=== PATIENT | male | born 1940 | race Caucasian/White ===

== ENCOUNTER 2017-01-05 14:00 | Inpatient (IN) | payer MEDICARE, BC ==
--- NOTE | ~2017-01-05 | EKG ---
PATIENT: KARISHMA DENNIS UNIT #: [id number] Ventricular Rate: 73 BPM Atrial Rate: 73 BPM P-R Interval: 192 ms QRS Duration: 94 ms Q-T Interval: 456 ms QTC Calculation(Bezet): 502 ms P Witten: 31 degrees Calculated R Witten: -11 degrees Calculated T Witten: 160 degrees Diagnosis Line: Sinus rhythm with occasional Premature ventricular Diagnosis Line: complexes and Premature atrial complexes Diagnosis Line: T wave abnormality, consider lateral ischemia Diagnosis Line: Prolonged QT Diagnosis Line: Abnormal ECG Diagnosis Line: When compared with ECG of 05-JAN-2017 16:57, Diagnosis Line: Premature atrial complexes are now Present Diagnosis Line: T wave inversion more evident in Anterior leads Diagnosis Line: Confirmed by ERIK STEVEN MD ([id number]) on Diagnosis Line: 01/07/2017 6:41:19 AM INTERPRETING : JOHN
--- NOTE | ~2017-01-05 | DS ---
Unit #: [id number] #: [id number] Patient: KARISHMA DENNIS [id number] [address] [address] [id number] I MR#: [id number] NAME: KARISHMA DENNIS SR ROOM: 314 Age: 76 Sex: M Admission Date: 01/05/2017 : 1940 Discharge Date: 01/11/2017 Attending Physician: Terence Colon M.D. Primary Care Physician: Terence Colon M.D. DISCHARGE SUMMARY DISCHARGE DIAGNOSES 1. Acute systolic congestive heart failure. 2. Ischemic cardiomyopathy. 3. Coronary artery disease status past left cardiac catheterization on 01/09/2017 which revealed left main 50 to 70% in ostium best seen in [place] cranial. 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 Diagonal branch small in caliber and diffusely diseased. Secondary diagonal branch small in caliber but normal. Left circumflex 85% involving the origin of the first obtuse marginal branch. Second marginal branch normal. First marginal branch 95% stenosis in its proximal third with the distal vessel normal and bypassable. Proximal half of the right coronary artery normal. Distal to the acute right ventricular branch 70 to 75%. Posterior descending artery normal. No left ventriculogram due to renal insufficiency. End-diastolic pressure (1) mm. Maximal medical therapy due to current renal insufficiency. Consider staged angioplasty versus coronary artery bypass grafting. 4. A 2-D echocardiogram, 01/06/17, revealed a left ventricular ejection fraction of 20 to 25%. Severe global hypokinesis of the left ventricle. Left atrium moderately dilated. Moderately enlarged right atrium. Moderately dilated right ventricle. Right ventricular systolic 60 mmHg consistent with severe pulmonary hypertension. Moderate mitral annular calcification. Moderate severe mitral regurgitation. Moderate tricuspid regurgitation. Mild pulmonic regurgitation. No pericardial effusion. No evidence of pleural fluid. 5. Paroxysmal atrial fibrillation, now in sinus rhythm. 6. Chronic anticoagulation with Coumadin. 7. Frequent PVCs. 8. Accelerated idioventricular rhythm, resolved, chronic kidney disease with current creatinine 1.9. 9. Hypertension. 10. Hyperlipidemia. 11. Diabetes mellitus type 2. 12. History of non-Hodgkin's lymphoma followed by Dr. Euceda. 13. History of prostate cancer status post external beam radiation. 14. Obesity. 15. Chronic lymphedema. 16. Reformed tobacco abuse. DISCHARGE MEDICATIONS 1. Flomax 0.4 mg p.o. every evening. 2. Amiodarone 200 mg p.o. daily. 3. Coumadin 5 mg p.o. daily. Unit #: [id number] #: [id number] Patient: KARISHMA DENNIS 4. Gabapentin 300 mg p.o. b.i.d. 5. Imodium 2 mg p.o. p.r.n. for diarrhea. 6. Metoprolol tartrate 50 mg p.o. b.i.d. 7. Furosemide 40 mg p.o. b.i.d. 8. Hydralazine 25 mg p.o. b.i.d. 9. Lantus 64 units subcu daily. 10. Allopurinol 300 mg p.o. every evening. 11. Excedrin tension one tablet p.o. q.8 p.r.n. for headache. 12. Oxycodone 5 mg p.o. b.i.d. p.r.n. for pain. 13. Tramadol 50 mg p.o. b.i.d. 14. Protonix 40 mg p.o. every evening. 15. Isosorbide dinitrate 10 mg p.o. b.i.d. 16. Nitroglycerin 0.4 mg sublingual every five minutes x3 p.r.n. chest pain. 17. Vitamin D3 2,000 units p.o. daily. 18. Lipitor 40 mg p.o. q.h.s. 19. Plavix 75 mg p.o. daily. HOSPITAL COURSE This is a 76-year-old white male with a past medical history of hypertension, hyperlipidemia, diabetes, non-Hodgkin's lymphoma and prostate cancer. The patient presented to the hospital with complaints of worsening lower extremity edema and shortness of breath. He also had some substernal chest tightness. He was directly admitted from Dr. Acharya's office. His pulse ox was checked and his O2 sat was 87% on room air. Oxygen was applied at two liters per nasal cannula. EKG revealed sinus rhythm PVCs. Telemetry revealed some bigeminy and a triplet. Cardiology was consulted for shortness of breath and chest pain. The patient was diagnosed with acute pulmonary edema secondary to concern for hypertensive heart disease and possible underlying ischemic disease. Serial cardiac enzymes were trended and he ruled out for a myocardial infarction. He was started on IV diuretics, low-sodium diet, strict intake and output and fluid restriction. He was placed on nitrates as well as a bet briseida. Therapeutic Lovenox was started due to chest pain. The patient reportedly had an abnormal stress test in the past with abnormal stress test documented and evidence of heart failure and chest pain. The patient was recommended to undergo a cardiac catheterization. Dr. Angeles with Nephrology was consulted due to renal insufficiency. The patient has documented stage 3 chronic kidney disease likely due from longstanding diabetes and protein in the urine. Initially, he was unable to lay flat for cardiac catheterization. So, his medications were adjusted and he was diuresed. He was taken for cardiac catheterization on 01/09/2017. He was found to have severe three vessel disease. Please see details above. He was recommended for recommended for staged angioplasty versus coronary artery bypass grafting. However, due to his renal insufficiency, he was tried first on maximal medical therapy with escalating doses of beta blockers to control arrhythmias and to help prevent left ventricular remodeling. Diuretics were given for volume overload. Postprocedure, he had some accelerated idioventricular rhythm as well as frequent PVCs. He was started on oral amiodarone. His rhythm has improved but he still has some PVCs. There are no complaints of chest pain. His shortness of breath has resolved. There is some mild lower extremity edema that continues but overall volume status is stable. He will be discharged home. A LifeVest will be ordered. CHF education has been provided regarding a low salt diet and fluid restriction. The patient has been encouraged to call or come in to be seen for worsening Unit #: [id number] #: [id number] Patient: KARISHMA DENNIS YANELI YU shortness of breath, lower extremity edema, or weight gain over three pounds. Post cath instructions have been provided. Calf site is soft without hematoma. He will be discharged home on dual antiplatelet therapy, high dose statin and nitrate and beta briseida. Oral Lasix and hydralazine have also been prescribed. No ARSEN inhibitor or ARB has been ordered due to elevated creatinine. The patient has been instructed to follow up with Nephrology in three to four weeks and then with Dr. Colon. If chest pain and shortness of breath recurs before appointments, he has been instructed to proceed to the emergency department. DIAGNOSTIC STUDIES LABORATORY: WBC count 5.5, hemoglobin 12.5, hematocrit 39.9, platelets 143. Sodium 140, potassium 4.4, chloride 102, CO2 31, BUN 46, creatinine 1.9, glucose 94, AST 23, ALT 24, alkaline phosphatase 98. Troponin 0.05 and 0.05. BNP 864. Total cholesterol 120, triglycerides 75, LDL 82, HDL 23. TSH 1.14. INR 1.4. D-dimer 453. IMAGING: Chest x-ray reveals decreased bilateral interstitial opacities and pulmonary vascular prominence, 01/08/2017. CARDIOVASCULAR: EKG reveals sinus rhythm with occasional PVC and PAC. T-wave abnormality in the lateral leads. PHYSICAL EXAMINATION GENERAL APPEARANCE: This is a 76-year-old white male in no acute distress. VITAL SIGNS: Temperature 97.9. Pulse 58. Blood pressure 102/68. SKIN: Warm and dry. NECK: Supple. No jugular venous distention. No hepatojugular reflux. Normal carotid upstrokes. No carotid bruits auscultated. HEART: S1, S2. Regular rate and rhythm. No rubs or gallops. LUNGS: Bilateral breath sounds have good air entry throughout all lung babin. Respirations even and unlabored. No rales, rhonchi or wheezes. ABDOMEN: Soft, nontender, nondistended. Positive bowel sounds auscultated x4 quadrants. No ascites. EXTREMITIES: Bilateral extremities have 1+ pitting edema. DP and PT pulses 2+. Capillary refill less than two seconds. DISCHARGE INSTRUCTIONS 1. The patient will be discharged home today. 2. Follow up with the primary care provider in one to two weeks. 3. Follow up with Dr. Lyles in three to four weeks. 4. Follow up with Dr. Colon on 02/28/2017 at 2:30 p.m. 5. CHF education. 6. Post cath instructions. 7. Home diet: Healthy Heart/2 g sodium/no concentrated sweets. 1800 mL daily fluid restriction. 8. LifeVest ordered and to be delivered at home. 9. No ARSEN or ARB prescribed secondary to elevated creatinine. 10. Consider staged angioplasty versus coronary artery bypass grafting as an outpatient. Dictated by... Paula Chester APRN for Semaj Ricardo TD: 01/16/2017 10:27 Unit #: [id number] #: [id number] Patient: KARISHMA DENNIS JOB #: [id number] DISCHARGE SUMMARY Page 1 of 1 X X DISCHARGE SUMMARY
--- NOTE | ~2017-01-05 | EKG ---
PATIENT: KARISHMA DENNIS UNIT #: [id number] Ventricular Rate: 95 BPM Atrial Rate: 95 BPM P-R Interval: 166 ms QRS Duration: 96 ms Q-T Interval: 386 ms QTC Calculation(Bezet): 485 ms P Bryan: 68 degrees Calculated R Bryan: 26 degrees Calculated T Bryan: 121 degrees Diagnosis Line: Sinus rhythm with frequent Premature ventricular Diagnosis Line: complexes in a pattern of bigeminy Diagnosis Line: ST and T wave abnormality, consider lateral ischemia Diagnosis Line: Prolonged QT Diagnosis Line: Abnormal ECG Diagnosis Line: When compared with ECG of 29-APR-2016 00:12, Diagnosis Line: T wave inversion now evident in Lateral leads Diagnosis Line: Confirmed by ERIK STEVEN MD ([id number]) on Diagnosis Line: 01/05/2017 9:40:42 PM INTERPRETING MD: JOHN
--- NOTE | ~2017-01-05 | CR63 ---
[facility] A Service of [facility] & [facility] RADIOLOGY TEXT RESULTS PATIENT: KARISHMA DENNIS LOCATION: [facility] 314- : 40 UNIT #: [id number] AGE: [address]: Terence Colon MD SEX: M ORDER DR: [id number] [facility] [address] [facility] [place], [place] [address] [id number] I MR#: [id number] Acc #: [id number] NAME: KARISHMA DENNIS : 1940 SEX: M STUDY DATE/TIME: 01/08/2017 11:04 UNIT: [address] ROOM: [facility] STUDY DESCRIPTION: CR Chest 2 View Attending Physician: Terence Colon M.D. Ordering Physician: Damaso Angeles Jr., M.D. Primary Care Physician: Terence Colon M.D. MEDICAL IMAGING REPORT This report is preliminary unless electronic signature is present EXAM PA and lateral chest INDICATIONS Followup congestive heart failure. Fluid buildup in the lungs for 2 weeks. Pre heart cath chest x-ray. COMPARISON 01/05/2017 FINDINGS Improved appearance of the chest with decreased bilateral interstitial opacities and decreased pulmonary vascular prominence. Trace pleural fluid bilaterally. No new infiltrates. Heart size stable. IMPRESSION Decreased bilateral interstitial opacities and pulmonary vascular prominence. Dictated by... Edward Loyd M.D. THIS IS AN ELECTRONICALLY VERIFIED REPORT Edward Loyd M.D. at 01/09/2017 4:34 PM Doris TD: 01/08/2017 13:30 JOB #: [id number] MEDICAL IMAGING REPORT Page 1 of 1 COPY
--- NOTE | ~2017-01-05 | CO ---
Unit #: [id number] #: [id number] Patient: KARISHMA DENNIS SR [id number] [address] [address] [id number] I MR#: [id number] NAME: KARISHMA DENNIS SR ROOM: [facility] Age: 76 Sex: M Admission Date: 01/05/2017 : 1940 Attending Physician: Jareth Acharya M.D. Primary Care Physician: Terence Colon M.D. Consultation Date: 01/05/2017 CONSULTATION REPORT REASON FOR CONSULTATION Diabetic management. HISTORY OF PRESENT ILLNESS This 76-year-old male is admitted to [facility] with shortness of air. The patient complains of shortness of air, which started around 3-4 days ago and was worse with exertion. The patient also states that he was not able to lie flat and was getting short of breath. He is also complaining of associated leg swelling. On questioning the patient also complained of episode of chest pain, which he describes as chest tightness and was worse with ambulation. Currently the patient denies any chest pain. The patient was seen by cardiology who has requested us to see the patient in consultation. The rest of the review of systems is negative. PAST MEDICAL HISTORY 1. The patient states that he has insulin-dependent diabetes mellitus for around 30 years with peripheral neuropathy and retinopathy, which required laser surgery. 2. History of low-grade follicular non-Hodgkin lymphoma, which he states is in remission. 3. Gout. 4. Hypertension. 5. Hyperlipidemia. 6. Prostate cancer status post radiation. 7. Environmental allergies. 8. Chronic lymphedema. 9. Chronic kidney disease. PAST SURGICAL HISTORY 1. Laparoscopic repair of incarcerated hernia, lyses of adhesions. 2. 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 3. Carpal tunnel syndrome. 4. Back surgery. 5. Tonsillectomy and adenoidectomy. 6. Pilonidal cyst excision. ALLERGIES There are no known drug allergies. HOME MEDICATIONS 1. Excedrin. 2. Diltiazem 180 mg p.o. q.h.s. 3. Roxicodone 5 mg b.i.d. p.r.n. 4. Lasix 40 mg p.o. daily. Unit #: [id number] #: [id number] Patient: KARISHMA DENNIS SR 5. Lantus 64 units subcu daily. 6. Coumadin 5 mg daily. 7. Vitamin D3 - 2,000 units daily. 8. Imodium as needed. 9. Kristalose. 10. Flomax 0.4 mg p.o. q.h.s. 11. Gabapentin 300 mg b.i.d. 12. Allopurinol 300 mg every evening. 13. Tramadol 50 mg daily. 14. Protonix 40 mg every evening. SOCIAL HISTORY The patient lives alone. He denies smoking or drinking. FAMILY HISTORY Positive for coronary artery disease. PHYSICAL EXAMINATION GENERAL: The patient is lying comfortably in bed, not in any obvious distress. VITAL SIGNS: Vital signs reveal a temperature of 98.3, pulse 72 per minute, respiratory rate 18 per minute, blood pressure 102/71. HEENT: Examination revealed no conjunctival congestion. Sclera is nonicteric. NECK: Neck is supple. Trachea is central. RESPIRATORY: Examination revealed decreased breath sounds bilaterally. There are no wheezes or crackles. HEART: Regular rate and rhythm. S1, S2. ABDOMEN: Abdomen is soft, nontender. Bowel sounds are present in all 4 quadrants. EXTREMITIES: Extremities reveal no pedal edema, cyanosis. SKIN: Warm and dry. DIAGNOSTIC STUDIES LABS ON ADMISSION: The patient's creatinine is 1.7, sodium 141, potassium 3.4. AST and ALT are within normal limits. The patient's hemoglobin A1C in April 2016 was 7.5. The patient's INR is 3.4. WBC is 5.8, hemoglobin 12.4, platelet count 161. ASSESSMENT AND PLAN 1. Insulin-dependent diabetes mellitus. The patient is on (1) Lantus. Will continue Lantus and have insulin sliding scale low dose. 2. Chest pain. The patient will have a cardiac cath next week. 3. CHF. As per cardiology. 4. History of gout. The patient's Allopurinol is on hold now. 5. BPH. The patient is on Flomax. 6. Chronic kidney disease. The patient's creatinine seems at baseline. Thank you for the consultation. We will follow the patient with you. Dictated by... Semaj Humphreys TD: 01/06/2017 11:52 Unit #: [id number] #: [id number] Patient: SONNYKARISHMA GROVES JOB #: [id number] CONSULTATION REPORT Page 1 of 1 X Debbie Tapia MD CONSULTATION REPORT
--- NOTE | ~2017-01-05 | CO ---
Unit #: [id number] #: [id number] Patient: KARISHMA PISANO [id number] [address] [address] [id number] MR#: [id number] NAME: KARISHMA PISANO SR ROOM: [facility] Age: 76 Sex: M Admission Date: 01/05/2017 : 1940 Attending Physician: Terence Colon M.D. Primary Care Physician: Terence Colon M.D. Consultation Date: 01/07/2017 CONSULTATION REPORT REASON FOR CONSULTATION Chronic kidney disease. HISTORY OF PRESENT ILLNESS Mr. Pisano is a very pleasant 76-year-old male with a longstanding history of hypertension, who was admitted for shortness of breath and orthopnea from his primary care physician's office. The patient was found to be in congestive heart failure and has been getting IV and now p.o. Lasix. His echo showed an ejection fraction of just 20% with severe mitral regurgitation and severe pulmonary hypertension. They are wanting to do a heart catheterization on Monday prompting our consultation. The patient states that his breathing is a little better, but he still would not be able to lie flat for heart catheterization. He denies the use of any NSAIDs at home. He has no history of kidney stones. No urinary complaints. He is having some issues with swelling in his legs still. He does have a history of both lymphoma and prostate cancer, both of which he tells me are doing well according to his cancer doctors. PAST MEDICAL HISTORY Significant for chronic kidney disease, stage 3; hypertension; diabetes for 30 years; hyperlipidemia; chronic back pain; history of lymphoma; history of prostate cancer, treated with radiation; history of paroxysmal atrial fibrillation; former smoker; pulmonary hypertension. PAST SURGICAL HISTORY Carpal tunnel surgery, back surgery, pilonidal cyst, hernia repair, and some finger orthopedic surgery. CURRENT MEDICATIONS As follows. He is getting Lasix 40 mg b.i.d., Flomax 0.4 mg a day, gabapentin 300 mg b.i.d., Tramadol 50 mg b.i.d., Protonix 40 mg a day, vitamin D daily, nitroglycerin ointment topical, metoprolol 25 mg b.i.d., sliding scale insulin, Lantus insulin 50 units daily and p.r.n. ALLERGIES He has no known drug allergies. FAMILY HISTORY Denies any family history of kidney disease or dialysis. There is a family history of coronary artery disease as well as brain aneurysm in his father. SOCIAL HISTORY The patient is a former smoker. He says he never inhaled. 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 He has some supportive family with him in his room today. REVIEW OF SYSTEMS A complete 12-point review of systems was completed with the above findings. In addition, he has not had any headaches or dizziness. No nosebleed, sore throat, or earache. He was having some mild chest pain, which has cleared. No hemoptysis. No nausea, vomiting, or diarrhea. No bright red blood per rectum or melena. No dysuria. No hematuria. No rashes. No pruritus. No flank pain. No fevers, no chills, or night sweats. No hot flashes. No intolerance to heat or cold. No bleeding issues. He is unaware of any significant weight changes. Denies depression or anxiety. Unless otherwise indicated, the review of systems was negative. PHYSICAL EXAMINATION VITAL SIGNS: The patient is afebrile. Pulse 72, respiratory rate 18, and blood pressure 100/68. I's and O's are positive by 689 mL. GENERAL: This is a pleasant male sitting up in a chair, comfortable, and in no acute distress. HEENT: Head is atraumatic and normocephalic. Eyes show pink conjunctivae with no scleral icterus. No nasal drainage or nosebleed. Oropharynx is moist with no thrush. NECK: Shows no rigidity. HEART: Regular rate and rhythm with murmur present. No gallop or rub appreciated. LUNGS: Have some bibasilar rales present without wheezing. Breathing is nonlabored. ABDOMEN: Soft, nontender, and nondistended. Bowel sounds are present. No masses appreciated. EXTREMITIES: No lower extremity clubbing or cyanosis. He has 1+ edema below the knees bilaterally. SKIN: Dry with no rashes. MUSCULOSKELETAL: No CVA tenderness to palpation. No joint effusions. NEUROLOGIC: Cranial nerves are grossly intact with no gross motor deficits. PSYCHIATRIC: Mood and affect appear normal. DIAGNOSTIC STUDIES LABORATORY RESULTS: Sodium 143, potassium low at 3.4, chloride 103, bicarb 28, glucose was just 42, BUN and creatinine were 29 and 1.5 respectively, with a magnesium of 2.2. Hemoglobin A1c was 6.6. TSH was okay. CK level of 38. Yesterday's creatinine was 1.7. IMAGING STUDIES: Chest x-ray on admission showed some mild congestive failure with bilateral effusions. Admission creatinine was 1.6 with an albumin of 4.1. BNP was 864. Hemoglobin 13.4. Prior creatinine before this admission have generally been in the low to mid 1 range. I did find a previous CT scan of the abdomen from 10/25/2016, that did not have any kidney issues according to the dictation. Previous urinalysis here have shown proteinuria mostly 1+, but no significant blood. ASSESSMENT AND PLAN 1. Chronic kidney disease, stage 3. This is likely due to long-standing diabetes with protein in the urine today. The patient does need diuretics Unit #: [id number] #: [id number] Patient: KARISHMA PISANO SR still as he says that he would be unable to lay flat for heart catheterization. We will go ahead and start him on some Mucomyst to get him ready for heart catheterization on Monday. We will recheck blood work in the morning. We will quantitate his urinary protein and recheck a urinalysis. I will also check urine eosinophils with his proton pump inhibitor use. 2. Congestive heart failure systolic in nature with significant mitral regurgitation. We will change his Lasix to IV and continue diuresis tonight. 3. Pulmonary hypertension. The patient is a former smoker. This will make his congestive failure more difficult to manage. 4. Diabetes with insulin dependence. Hemoglobin A1c is at goal. He would be a good candidate for an ARSEN inhibitor once he completes his heart catheterization. 5. Hypertension with good control. 6. Paroxysmal atrial fibrillation. 7. History of lymphoma. I will check a uric acid level. 8. History of prostate cancer. 9. Proteinuria. Again, we will consider ARSEN inhibitor once we get past the heart catheterization. 10. I will recheck a chest x-ray in the morning. I would like to thank Dr. Colon for this consult and the opportunity to participate in evaluation and care of Mr. Pisano. Dictated by... Damaso Angeles Jr., M.D. SJK/davide TD: 01/08/2017 03:56 JOB #: [id number] CONSULTATION REPORT Page 1 of 1 X Damaso Angeles MD X CONSULTATION REPORT
--- NOTE | ~2017-01-05 | CR72 ---
[facility] A Service of [facility] RADIOLOGY TEXT RESULTS PATIENT: KARISHMA DENNIS LOCATION: [facility] 314- : 40 UNIT #: [id number] AGE: [address]: Jareth Acharya MD SEX: M ORDER DR: [id number] [facility] [address] [facility]. [place], [place] [address] [id number] MR#: [id number] Acc #: [id number] NAME: KARISHMA DENNIS : 1940 SEX: M STUDY DATE/TIME: 01/05/2017 17:31 UNIT: [address] ROOM: [facility] STUDY DESCRIPTION: CR Chest Single View Portable Attending Physician: Jareth Acharya M.D. Ordering Physician: Terence Colon M.D. Primary Care Physician: Terence Colon M.D. MEDICAL IMAGING REPORT This report is preliminary unless electronic signature is present EXAM Portable chest HISTORY Shortness of breath and cough, onset today. TECHNIQUE Single view of the chest was obtained and compared to previous examination from earlier today. FINDINGS Stable cardiomegaly is noted. No enlarging pleural effusions are seen. There is a small volume of pleural fluid on both sides. Vascular markings are mildly prominent with peribronchial cuffing. This is unchanged. No new focal infiltrates. IMPRESSION Mild congestive heart failure with bilateral effusions. No significant change from the previous exam. STAT * RESULT Dictated by... Sesar Moses M.D. THIS IS AN ELECTRONICALLY VERIFIED REPORT Sesar Moses M.D. at 01/05/2017 10:17 PM RLF/to TD: 01/05/2017 17:43 JOB #: [id number] [facility] A Service of [facility] RADIOLOGY TEXT RESULTS PATIENT: KARISHMA DENNIS SR LOCATION: [facility] [id number] : 40 UNIT #: [id number] AGE: [address]: Jareth Acharya MD SEX: M ORDER DR: MEDICAL IMAGING REPORT Page 1 of 1 COPY
--- NOTE | ~2017-01-05 | HP ---
Unit #: [id number] #: [id number] Patient: KARISHMA DENNIS [id number] [address] [place], [place] [address] [id number] I MR#: [id number] NAME: KARISHMA DENNIS SR ROOM: 314 Age: 76 Sex: M Admission Date: 01/05/2017 : 1940 Attending Physician: Jareth Acharya M.D. Primary Care Physician: Terence Colon M.D. HISTORY AND PHYSICAL HISTORY OF PRESENT ILLNESS This is a pleasant, 76-year-old, male with a past medical history of diabetes mellitus, hypertension, hyperlipidemia, chronic back pain, non-Hodgkin's lymphoma, treated with Rituxan in the past in 2011, follows with Dr. Euceda, prostate cancer status post external beam radiation and paroxysmal atrial fibrillation on chronic anticoagulation with Coumadin. The patient saw his family doctor, Dr. Acharya, earlier in the day secondary to complaints of increasing shortness of breath. He reports this has been going on for about three days. He has noticed lower extremity swelling and does report complaints of PND and orthopnea. When asked, the patient also states yesterday he had some anterior substernal chest tightness while at rest. This was also associated with shortness of breath and he felt like he could not get his air. He has also noticed increasing fatigue and worsening exertional shortness of breath over the last several weeks. He states when he goes to the yeh, he is unable to go up the ramp without having to stop and take rest breaks due to extreme fatigue and difficulty with his breathing. At present, he is up in the chair. He is slightly tachypneic. He was a direct admit from Dr. Acharya's office. His lips look slightly cyanotic. Pulse ox was checked and he had an O2 sat of 87% on room air. Therefore, nasal cannula was applied at two liters. At present, he is chest pain free. His family is currently in the room at bedside. EKG shows sinus rhythm with frequent PVCs, episodes of bigeminy and some three beat runs of nonsustained ventricular tachycardia. QTC interval is 485 msec. No acute ischemic changes noted. Also with some lateral wall ischemia noted. He underwent Lexiscan Cardiolite in February 2015. At that time, there was suspicion for a medium sized area of stress induced ischemia involving the lateral wall. LVEF was 45% with mild global hypokinesis. Cardiac catheterization was suggested at that time but the patient never had. PAST MEDICAL HISTORY 1. Hypertension. 2. Diabetes mellitus. 3. Hyperlipidemia. 4. Chronic back pain. 5. Non-Hodgkin's lymphoma with treatment with Rituxan in the past, 2011, followed by Dr. Euceda. 6. Prostate cancer status post external beam radiation in the past. 7. Paroxysmal atrial fibrillation on anticoagulation with Coumadin. 8. Lexiscan Cardiolite February of 2015 shows suspicion for medium sized area of stress induced ischemia involving lateral wall of the LV. Unit #: [id number] #: [id number] Patient: KARISHMA DENNIS SR LVEF at that time was 45%. Mild global hypokinesis. Cardiac catheterization was suggested but the patient never had. 9. Obesity. 10. Reformed tobacco use, quit approximately five years ago. 11. A 2-D echocardiogram in October 2010 showed a LVEF of 50%, mild concentric LVH, calcified mitral apparatus with mild MR, mild TR. 12. Chronic kidney disease. 13. Chronic lymphedema. PAST SURGICAL HISTORY 1. Carpal tunnel syndrome. 2. Back surgery. 3. T and A. 4. Pilonidal cyst excision. 5. Laparoscopic repair of incarcerated hernia with lysis of adhesions. 6. Amputation, traumatic, of the left thumb and left third finger at age [age]. SOCIAL HISTORY The patient lives at home alone. 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 He is a reformed tobacco abuser, quit approximately five years ago. He states when he did smoke it was minimal. He denies illicit drugs or alcohol. FAMILY HISTORY Positive for coronary artery disease in his sister at age 78. Positive for cerebral aneurysm in his father. ALLERGIES No drug allergies. HOME MEDICATIONS 1. Flomax 0.4 mg p.o. q.h.s. 2. Gabapentin 300 mg p.o. b.i.d. 3. Allopurinol 300 mg p.o. daily. 4. Tramadol 50 mg p.o. b.i.d. 5. Protonix 40 mg p.o. daily. 6. Excedrin extra strength capsule on each q.8 hours p.r.n. 7. Diltiazem 180 mg p.o. q.h.s. 8. Roxicodone 5 mg p.o. b.i.d. p.r.n. pain. 9. Lasix 40 mg p.o. daily. 10. Lantus 64 units subcu daily. 11. Warfarin 5 mg p.o. daily. 12. Vitamin D 2,000 units p.o. daily. 13. Imodium p.r.n. 14. Lactulose 15 to 30 mL p.o. b.i.d. p.r.n. constipation. PHYSICAL EXAMINATION VITAL SIGNS: Temperature 97.7. Respiratory rate 22. Pulse sixties. Blood pressure 125/60. Initial oxygen saturation on room air was noted to be 87%. HEENT: Head is atraumatic, normocephalic. Pupils are equal and round. Mucous membranes are moist. NECK: Supple. Trachea is midline. No JVD. No carotid bruits. RESPIRATORY: Clear to auscultation anteriorly. Rales bibasilar. HEART: S1, S2. Regular rate and rhythm. No murmur, gallop or rub. ABDOMEN: Soft, nontender, nondistended. Bowel sounds are present. EXTREMITIES: Pulses are palpable. 2+ pedal edema. No clubbing or cyanosis. Unit #: [id number] #: [id number] Patient: KARISHMA DENNIS SR DIAGNOSTIC STUDIES LABORATORY: Currently, labs are pending. IMAGING: Chest x-ray is currently pending. CARDIOVASCULAR: EKG shows normal sinus rhythm, rate of 95 beats per minute, frequent PVCs with bigeminy. Some lateral wall ischemia is noted. IMPRESSION 1. Acute pulmonary edema secondary to hypertensive heart disease, also could be related to underlying coronary artery disease. 2. Frequent PVCs and episodes of nonsustained ventricular tachycardia. 3. Chest pain, rule out DE. 4. Diabetes mellitus. 5. History of hypertension, hyperlipidemia, diabetes mellitus, family history of coronary artery disease in his sister. 6. History of paroxysmal atrial fibrillation on anticoagulation with Coumadin. 7. Obesity. 8. History of non-Hodgkin's lymphoma treated with Rituxan in the past in 2011, follows with Dr. Euceda. PLAN 1. The patient has been admitted secondary to acute volume overload, pulmonary hypertension. We will check cardiac enzymes and troponin to rule out an acute coronary event, check 2-D echocardiogram to assess LVEF and for any valvular abnormalities. Currently, his labs are pending. He will be started on IV diuresis, low sodium diet with fluid restrictions, strict Is and Os and daily weights. The patient will also be started on nitrates as well as beta briseida, metoprolol 25 mg p.o. STAT and then b.i.d. with parameters to hold for heart rate less than 45 and systolic blood pressure less than 90. He will also be started on Lovenox 1 mg/kg subcu, first dose STAT and then b.i.d. 2. Due to the patient's risk factors and abnormal stress test in the past, it is advised the patient undergo cardiac catheterization. We are tentatively on planning on this for Monday, 01/08. The risks and benefits were explained to the family and the patient is agreeable. This will be done once his CHF is resolved. Await 2-D echocardiogram results. Dictated by Em Ware A.P.R.N. for Terence Colon M.D. LMW/bd TD: 01/06/2017 12:32 JOB #: [id number] Unit #: [id number] #: [id number] Patient: KARISHMA DENNIS SR HISTORY AND PHYSICAL Page 1 of 1 X Em Ware APRN X HISTORY AND PHYSICAL
--- NOTE | ~2017-01-05 | A ---
[facility] Nutrition Therapy DATE: 01/06/17 Patient: KARISHMA DENNIS, Physician: [facility] Address: [address] Room/Bed: [address] [place] [address], Zip: [place] [id number] Admit Date: 01/05/17 Date of : 40 Height: 5 11 Weight: 250 113.6 NUTRITIONAL ASSESSMENT: REASON: Consult RE: diabetic diet education 76 yo male admitted for CHF Anthropometrics: Ht: 5'11" Wt: 113.6 kg (250#) BMI: 34.9 Assessment: RD campus interviews intern provided written and verbal diabetic diet education. Pt reported consuming 3 meals/d and snacks on occasion. Pt reported measuring out certain foods, like cereal. Pt reported consuming water, soda and powerade on a daily basis. RD campus interviews intern encouraged consistent healthy meals throughout the daily, emphasizing addition of lean proteins, vegetables and fruits. RD encouraged decreasing amount of soda/powerade and drinking water instead. RD discussed fluid restriction w/ pt d/t CHF. Pt verbalized understanding, expect mild compliance with diet after d/c. Pt had no diet questions at this time. RD campus interviews intern to remain available. Recommendations: 1. Encourage compliance with consistent carb + 2 gm sodium + fluid restriction. 2. Reconsult RD if further diet education is needed/required. RD will f/u per protocol. Respectfully, Carmita Moon, Applied Technologist Marcio Mejia MS, RD, LD Food and Nutritional Services [facility] cc: client file
[~2017-01-05 14:00] MED LIST: ACETAMINOPHEN PO; ACETAMINOPHEN650 M1 PO; ACYCLOVIR400 MG PO; ALLOPURINOL300 MG PO; ALPRAZOLAM; ALPRAZOLAM PO; ALPRAZOLAM0.25 MG PO; AMBIEN PO; ASPIRINEC; ASPIRINEC PO; CARDIZEM CD PO; CARDIZEM CD120 MG PO; CARTIA XT PO; CIPRO PO; CLARITIN10 MG; CO Q10200 MG PO; COLACE PO; COREG6.25 MG PO; COUMADIN5 MG PO; DILTIAZEM 24HR120 M1 PO; ECOTRIN81 M1; ECOTRIN81 M1 PO; EXCEDRIN ASA FR1 TA1; EXCEDRIN EXTRA STREN; EXCEDRIN EXTRA1 TAB PO; FISH OIL 1,0001 CA2 PO; FISH OIL 1,0001 CAP PO; FISH OIL 1,0001 EAC1 PO; FISH OIL PO; FLAGYL PO; FLEXERIL PO; FLOMAX0.4 M1 PO; FLOMAX0.4 MG; FLOMAX0.4 MG PO; FLORASTOR250 M1 PO; FUROSEMIDE40 MG PO; GABAPENTIN300 M2 PO; GARLIC1 CAP PO; GLUCOPHAGE500 M1 PO; HUMULIN N100 U/ML INJ; HUMULIN N100 U/ML SQ; HUMULIN N300 U/3 ML; HUMULIN R100 U/ML; HUMULIN R100 U/ML INJ; HUMULIN R100 U/ML SUBQ; JANTOVEN5 MG PO; KEFLEX PO; KEFLEX500 M1 PO; LANTUS SOL100 UNIT/1 SUBQ; LANTUS SOLOSTAR3 ML INJ; LASIX; LASIX PO; LIPITOR; LIPITOR PO; LISINOPRIL PO; LISINOPRIL20 MG PO; LORTAB 10/500 T1 TAB PO; LORTAB 7.5-5001 TAB PO; LOVENOX30 MG/0.3 INJ; MAGNESIUM500 MG PO; MATZIM LA180 MG PO; MATZIM LA240 MG PO; METFORMIN; METFORMIN PO; METOCLOPRAMIDE H5 MG PO; METOPROLOL TAR25 MG PO; MILK OF MAGNESIA PO; NEURONTIN; NEURONTIN PO; NEURONTIN300 MG PO; NORCO1 TAB 10/3 PO; NOVAFINE; NOVOLIN N100 U/ML INJ; NOVOLIN N100 UNIT/1 SQ; NOVOLOG100 U/ML SUBQ; PHENERGAN PO; PROTONIX PO; REGLAN PO; ROCEPHIN IM; ROCEPHIN IV; ROXICODONE5 MG PO; SENNA PO; SUPER B COMPLEX1 CAP PO; TRAMADOL HCL50 M1 PO; TYLENOL325 M1 PO; ULTRAM PO; VICODIN 5/500 T1 TAB PO; VICODIN PO; VITAMIN D 22000 UNIT PO; VITAMIN D1000 UNI1 PO; VITAMIN D32000 UNI1 PO; XANAX0.5 M1 PO; XARELTO15 MG PO; ZOCOR20 MG PO; ZOFRAN 4 MG4 MG/2 ML IV; ZOFRAN8 MG PO; ZYLOPRIM; ZYLOPRIM100 MG PO; ZYRTEC10 M2 PO; [UNRECOGNIZED DRUG - OTHER] PO
[2017-01-05] MEDS ORDERED: IMMODIUM1 MG/5 M1 (15:56)
[2017-01-05] MEDS ORDERED: KRISTALOSE10 GM PO (15:57)
[2017-01-05 17:16] LABS: HEMATOCRIT 42.8 % (38.0-50.0); HEMOGLOBIN 13.4 gm/dL (13.0-16.0); MEAN CELL VOLUME 89.4 FL (83-96); MEAN CORPUSCULAR HGB CONC 31.3 g/dL (30-36); MEAN PLATELET VOLUME 9.4 FL (6.5-11.5); RED BLOOD COUNT 4.79 X10e (3.90-5.60); RED CELL DISTRIBUTION WIDTH 16.6 % (11.0-15.5); WHITE BLOOD COUNT 8.7 X10e3 (4.0-10.5)
[2017-01-05 17:28] LABS: INR 2.8; PROTHROMBIN TIME (PATIENT) 30.7 SECONDS (9.6-11.5)
[2017-01-05 17:38] LABS: CK TOTAL 39 IU/L (36-174)
[2017-01-05 17:41] LABS: ALBUMIN SERUM 4.1 g/dL (3.5-5.0); BILIRUBIN, DIRECT 0.2 mg/dL (0.0-0.2); BILIRUBIN,INDIRECT 0.9 mg/dL (0.0-0.9); BILIRUBIN,TOTAL 1.1 mg/dL (0.2-2.0); BUN/CREATININE RATIO 16.25; CALCIUM SERUM 9.5 mg/dL (8.4-10.2); CREATININE SERUM 1.6 mg/dL (0.6-1.4); GLOM FILT RATE Estimated 41.3 mL/min (>60); MAGNESIUM 2.1 mg/dL (1.6-3.0); POTASSIUM 4.4 mmol/L (3.5-5.1); PROTEIN TOTAL SERUM 7.5 g/dL (6.0-8.3)
[2017-01-05 23:29] LABS: CK TOTAL 41 IU/L (36-174)
[2017-01-06 05:34] LABS: HEMATOCRIT 39.7 % (38.0-50.0); HEMOGLOBIN 12.4 gm/dL (13.0-16.0); MEAN CELL VOLUME 90.1 FL (83-96); MEAN CORPUSCULAR HEMOGLOBIN 28.1 PG (28-34); MEAN CORPUSCULAR HGB CONC 31.2 g/dL (30-36); MEAN PLATELET VOLUME 9.5 FL (6.5-11.5); RED BLOOD COUNT 4.41 X10e (3.90-5.60); RED CELL DISTRIBUTION WIDTH 16.4 % (11.0-15.5); WHITE BLOOD COUNT 5.8 X10e3 (4.0-10.5)
[2017-01-06 05:38] LABS: INR 3.4; PROTHROMBIN TIME (PATIENT) 37.5 SECONDS (9.6-11.5)
[2017-01-06 06:18] LABS: CK TOTAL 32 IU/L (36-174)
[2017-01-06 07:22] LABS: BUN/CREATININE RATIO 15.29; CALCIUM SERUM 9.2 mg/dL (8.4-10.2); CREATININE SERUM 1.7 mg/dL (0.6-1.4); GLOM FILT RATE Estimated 38.3 mL/min (>60); MAGNESIUM 2.1 mg/dL (1.6-3.0); POTASSIUM 3.4 mmol/L (3.5-5.1)
[2017-01-06 12:59] LABS: CK TOTAL 47 IU/L (36-174)
[2017-01-06 18:34] LABS: CK TOTAL 39 IU/L (36-174)
[2017-01-07 00:52] LABS: CK TOTAL 38 IU/L (36-174)
[2017-01-07 06:18] LABS: INR 3.6; PROTHROMBIN TIME (PATIENT) 40.1 SECONDS (9.6-11.5)
[2017-01-07 13:29] LABS: BUN/CREATININE RATIO 19.33; CALCIUM SERUM 9.3 mg/dL (8.4-10.2); CREATININE SERUM 1.5 mg/dL (0.6-1.4); GLOM FILT RATE Estimated 44.6 mL/min (>60); MAGNESIUM 2.2 mg/dL (1.6-3.0); POTASSIUM 3.4 mmol/L (3.5-5.1)
[2017-01-07 18:00] LABS: URINE APPEARANCE CLEAR; URINE BILIRUBIN NEG (NEG); URINE BLOOD NEG (NEG); URINE COLOR YELLOW; URINE GLUCOSE NEG (NEG); URINE KETONE NEG (NEG); URINE LEUKOCYTE ESTERASE NEG (NEG); URINE NITRATE NEG (NEG); URINE PROTEIN NEG (NEG); URINE SPECIFIC GRAVITY 1.013 (1.003-1.035); URINE UROBILINOGEN 0.2 MG/DL (NEG)
[2017-01-07 18:06] LABS: CREATININE,RANDOM URINE 86 mg/dL; TOTAL PROTEIN,RANDOM URINE 17 mg/dl (<10)
[2017-01-08 07:33] LABS: HEMATOCRIT 41.4 % (38.0-50.0); MEAN CELL VOLUME 89.7 FL (83-96); MEAN CORPUSCULAR HEMOGLOBIN 28.1 PG (28-34); MEAN CORPUSCULAR HGB CONC 31.3 g/dL (30-36); MEAN PLATELET VOLUME 9.5 FL (6.5-11.5); RED BLOOD COUNT 4.61 X10e (3.90-5.60); RED CELL DISTRIBUTION WIDTH 16.7 % (11.0-15.5); WHITE BLOOD COUNT 6.7 X10e3 (4.0-10.5)
[2017-01-08 07:41] LABS: INR 2.6; PROTHROMBIN TIME (PATIENT) 28.3 SECONDS (9.6-11.5)
[2017-01-08 08:02] LABS: BUN/CREATININE RATIO 19.44; CALCIUM SERUM 9.1 mg/dL (8.4-10.2); CREATININE SERUM 1.8 mg/dL (0.6-1.4); GLOM FILT RATE Estimated 35.8 mL/min (>60); MAGNESIUM 2.1 mg/dL (1.6-3.0); URIC ACID 6.7 mg/dL (2.6-7.2)
[2017-01-09 07:25] LABS: HEMATOCRIT 40.3 % (38.0-50.0); HEMOGLOBIN 12.8 gm/dL (13.0-16.0); MEAN CELL VOLUME 89.9 FL (83-96); MEAN CORPUSCULAR HEMOGLOBIN 28.6 PG (28-34); MEAN CORPUSCULAR HGB CONC 31.8 g/dL (30-36); MEAN PLATELET VOLUME 9.8 FL (6.5-11.5); RED BLOOD COUNT 4.48 X10e (3.90-5.60); RED CELL DISTRIBUTION WIDTH 16.2 % (11.0-15.5); WHITE BLOOD COUNT 6.6 X10e3 (4.0-10.5)
[2017-01-09 07:40] LABS: INR 1.8; PARTIAL THROMBOPLASTIN TIME 33.2 SECONDS (23.5-31.3); PROTHROMBIN TIME (PATIENT) 19.4 SECONDS (9.6-11.5)
[2017-01-09 07:51] LABS: BUN/CREATININE RATIO 24.44; CALCIUM SERUM 9.5 mg/dL (8.4-10.2); CREATININE SERUM 1.8 mg/dL (0.6-1.4); GLOM FILT RATE Estimated 35.8 mL/min (>60); POTASSIUM 4.4 mmol/L (3.5-5.1)
[2017-01-10 04:39] LABS: BUN/CREATININE RATIO 28.66; CREATININE SERUM 1.5 mg/dL (0.6-1.4); GLOM FILT RATE Estimated 44.6 mL/min (>60); MAGNESIUM 2.2 mg/dL (1.6-3.0); POTASSIUM 4.3 mmol/L (3.5-5.1)
[2017-01-10 04:44] LABS: BASOPHIL% 0.9 % (0-2.5); EOSINOPHIL# 0.1 X10e3 (0-0.7); EOSINOPHIL% 2.7 % (0.0-7.0); HEMOGLOBIN 12.5 gm/dL (13.0-16.0); LYMPHOCYTE# 1.1 X10e3 (1.0-3.5); LYMPHOCYTE% 21.5 % (17.0-45.0); MEAN CORPUSCULAR HEMOGLOBIN 29.2 PG (28-34); MEAN CORPUSCULAR HGB CONC 32.8 g/dL (30-36); MEAN PLATELET VOLUME 9.8 FL (6.5-11.5); MONOCYTE# 0.5 X10e3 (0-1.0); MONOCYTE% 8.7 % (3.0-12.0); NEUTROPHIL# 3.5 X10e3 (1.5-7.1); NEUTROPHIL% 66.2 % (40-75); PLATELET COUNT 129 X10e3 (140-420); RED BLOOD COUNT 4.27 X10e (3.90-5.60); RED CELL DISTRIBUTION WIDTH 16.1 % (11.0-15.5); WHITE BLOOD COUNT 5.3 X10e3 (4.0-10.5)
[2017-01-10 04:46] LABS: DIFF IND NO
[2017-01-10 07:22] LABS: INR 1.4; PROTHROMBIN TIME (PATIENT) 15.4 SECONDS (9.6-11.5)
[2017-01-11 06:18] LABS: HEMATOCRIT 39.9 % (38.0-50.0); HEMOGLOBIN 12.5 gm/dL (13.0-16.0); MEAN CELL VOLUME 89.5 FL (83-96); MEAN CORPUSCULAR HEMOGLOBIN 28.1 PG (28-34); MEAN CORPUSCULAR HGB CONC 31.4 g/dL (30-36); MEAN PLATELET VOLUME 9.9 FL (6.5-11.5); RED BLOOD COUNT 4.46 X10e (3.90-5.60); RED CELL DISTRIBUTION WIDTH 16.5 % (11.0-15.5); WHITE BLOOD COUNT 5.5 X10e3 (4.0-10.5)
[2017-01-11 06:23] LABS: INR 1.4; PROTHROMBIN TIME (PATIENT) 14.7 SECONDS (9.6-11.5)
[2017-01-11 06:45] LABS: BUN/CREATININE RATIO 24.21; CALCIUM SERUM 9.1 mg/dL (8.4-10.2); CREATININE SERUM 1.9 mg/dL (0.6-1.4); GLOM FILT RATE Estimated 33.5 mL/min (>60); POTASSIUM 4.4 mmol/L (3.5-5.1)
[2017-01-11] MEDS ORDERED: ISOSORBIDE DINI10 MG PO (13:08)
[2017-01-11] MEDS ORDERED: LIPITOR40 MG PO (13:08)
[2017-01-11] MEDS ORDERED: LASIX PO (13:08)
[2017-01-11] MEDS ORDERED: CLOPIDOGREL75 MG PO (13:09)
[2017-01-11] MEDS ORDERED: AMIODARONE HCL200 MG PO (13:10)
[2017-01-11] MEDS ORDERED: LOPRESSOR PO (13:11)
[2017-01-11] MEDS ORDERED: HYDRALAZINE HCL25 MG PO (13:11)
[2017-01-11] MEDS ORDERED: NITROGLYGERIN0.4 MG (13:26)
== END 2017-01-11 14:15 | disposition home or self-care (01) | DRG 291 ==
LOC: C3A PCU 14:00
PROVIDERS: Internal Medicine; Internal Medicine Cardiovascular Disease; Internal Medicine Nephrology; Nurse Practitioner
PROC: B246ZZZ Ultrasonography of Right and Left Heart (ICD-10-PCS; principal; 2017-01-06)
DX: I13.0 Hypertensive heart and chronic kidney disease with heart failure and stage 1 through stage 4 chronic kidney disease, or unspecified chronic kidney disease (principal); I50.21 Acute systolic (congestive) heart failure; J96.01 Acute respiratory failure with hypoxia; E11.22 Type 2 diabetes mellitus with diabetic chronic kidney disease; I27.2 Other secondary pulmonary hypertension; G89.29 Other chronic pain; E78.5 Hyperlipidemia, unspecified; M54.9 Dorsalgia, unspecified; Z85.72 Personal history of non-Hodgkin lymphomas; Z85.46 Personal history of malignant neoplasm of prostate; Z92.3 Personal history of irradiation; I48.0 Paroxysmal atrial fibrillation; Z79.01 Long term (current) use of anticoagulants; Z87.891 Personal history of nicotine dependence; Z89.012 Acquired absence of left thumb; R59.1 Generalized enlarged lymph nodes; E66.9 Obesity, unspecified; Z68.34 Body mass index [BMI] 34.0-34.9, adult; Z79.4 Long term (current) use of insulin; M10.9 Gout, unspecified; N40.0 Benign prostatic hyperplasia without lower urinary tract symptoms; N18.3 Chronic kidney disease, stage 3 (moderate)
CPT/HCPCS: 71010; 71020; 80048; 80061; 80076; 81003; 82550; 82570; 82947; 83036; 83735; 83880; 84156; 84443; 84484; 84550; 85025; 85027; 85379; 85610; 85730; 89190; 93005; 93306; C1769; C1887; C1894; J1644; J1650; J1815; J1940; J2250; J2405; J3010

== ENCOUNTER 2017-01-29 20:23 | Inpatient (IN) | payer MEDICARE, BC ==
--- NOTE | ~2017-01-29 | HP ---
Unit #: [id number] #: [id number] Patient: KARISHMA DENNIS [id number] [address] [place], [place] [address] [id number] MR#: [id number] NAME: KARISHMA DENNIS SR ROOM: 01418 Age: 76 Sex: M Admission Date: 01/29/2017 : 1940 Attending Physician: Brina Arnold M.D. Primary Care Physician: Jareth Acharya M.D. HISTORY AND PHYSICAL REVISED REPORT CHIEF COMPLAINT Hypoglycemia, Coumadin toxicity, diarrhea. HISTORY OF PRESENT ILLNESS This pleasant, 76-year-old male with AODM, hypertension, ischemic cardiomyopathy, is being admitted for hypoglycemia, Coumadin toxicity and diarrhea. The patient states that he was well until four to five days ago when he took a dose of lactulose, afterwards, developed nonbloody diarrhea which has persisted along with an episode of vomiting and some nausea with decreased p.o. intake. Over the past two days, he notes hypoglycemia. Tonight, his sugar was 21. He took a smaller dose of Lantus today but, again, his p.o. intake was decreased. He presented to this emergency department with a sugar of 62 after his hypoglycemia was treated in route. He was given another amp of D50 and current Accu-Chek is about 85. Labs are also notable for Coumadin toxicity with an INR of greater than 13. No active bleeding. PAST MEDICAL HISTORY 1. 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 2. Nonischemic cardiomyopathy admitted to this facility 01/05 through 01/11/2017. Ejection fraction 20 to 25% with severe pulmonary hypertension, moderate to severe MR, moderate TR. Cardiac catheterization revealed three vessel disease currently being treated medically, although angioplasty may be required in the future. The patient is anticoagulated with paroxysmal atrial fibrillation. 3. Chronic kidney disease with creatinine about 1.5 to 1.8. 4. Hypertension. 5. Gout. 6. Hyperlipidemia. 7. Environmental allergies. 8. Prostate cancer status external beam radiation. 9. Low-grade follicular non-Hodgkin lymphoma. Last chemotherapy 09/2011. 10. Colonoscopy 07/2016 revealing moderate diverticular disease. A polyp was removed. 11. EGD 05/2011 revealing gastritis, hiatal hernia. 12. Chronic lymphedema. 13. Cervical wound infection requiring exploratory lap 02/2013 treated with vancomycin x2 weeks. Unit #: [id number] #: [id number] Patient: KARISHMA DENNIS SR 14. Laparoscopic repair of an incarcerated hernia and lysis of adhesions. 15. 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 16. Carpal tunnel release. 17. Back surgery. 18. Tonsillectomy. 19. Pilonidal cyst excised. SOCIAL HISTORY The patient lives alone. He is essentially a lifelong nonsmoker and does not drink alcohol. FAMILY HISTORY CAD. ALLERGIES No known drug allergies. HOME MEDICATIONS 1. Lasix 40 mg b.i.d. 2. Ultram 50 mg b.i.d. 3. Neurontin 300 mg b.i.d. 4. Imdur 10 mg b.i.d. 5. Allopurinol 300 mg daily. 6. Flomax 0.4 mg daily. 7. Protonix 40 mg daily. 8. Hydralazine 25 mg b.i.d. 9. Metoprolol 50 mg b.i.d. 10. Plavix 75 mg daily. 11. Amiodarone 200 mg daily. 12. Lipitor 40 mg q.h.s. 13. Nitroglycerin p.r.n. 14. Lactulose p.r.n. 15. Imodium p.r.n. 16. Lantus 64 units daily. The patient only took 40 units today. 17. Vitamin D3 2,000 units daily. 18. Excedrin extra strength as needed. 19. Oxycodone 5 mg b.i.d. p.r.n. 20. Coumadin 5 mg. REVIEW OF SYSTEMS Notable for nausea, vomiting, diarrhea, poor p.o. intake, hypoglycemia, AODM, non-Hodgkin lymphoma, hypertension, gout, hyperlipidemia, allergies, prostate cancer, above-mentioned surgeries, also ischemic cardiomyopathy. All other systems were reviewed and are otherwise negative. PHYSICAL EXAMINATION GENERAL APPEARANCE: Pleasant, pale, 76-year-old male currently in no acute distress. VITAL SIGNS: Temperature 97.6. Pulse 71. Respirations 18. Blood pressure 127/86. O2 saturation 97% on room air. HEENT: Eyes: PERRLA. Extraocular muscles are intact. Pharynx is benign. NECK: Supple without adenopathy or thyromegaly. CHEST: Clear. CARDIAC: Normal S1, S2. ABDOMEN: Bowel sounds are present. No hepatosplenomegaly, tenderness or masses. There is bruising noted over the abdominal wall from previous admission requiring Lovenox injections. EXTREMITIES: Without edema. Pedal pulses are diminished. The patient is Unit #: [id number] #: [id number] Patient: KARISHMA DENNIS SR status amputation of the left thumb and left third finger. NEUROLOGIC: The patient is awake, alert, oriented. Cranial nerves are intact. Equal strength throughout. DIAGNOSTIC STUDIES LABORATORY: Hematocrit 42.3, WBC count 12, normal platelet count. INR greater than 13 with a PT of greater than 150 and a PTT of 57.4. SMA-12: Glucose 62 up from 21 at the scene, BUN 30, creatinine 1.6 which is stable, potassium 3.4, calcium 8.3. BNP is 1,271. Urinalysis is trace protein. IMAGING: I am told the chest x-ray did not reveal congestive heart failure and I will review the chest x-ray shortly. CARDIOVASCULAR: EKG: Sinus rhythm, rate 73 with one PVC and nonspecific ST wave abnormality. ASSESSMENT 1. Hypoglycemia in this type 2 diabetic with recent decreased p.o. intake possibly related to gastroenteritis. 2. Possible gastroenteritis. 3. Coumadin toxicity without acute bleeding but INR is greater than 13. 4. Chronic kidney disease. 5. Ischemic cardiomyopathy. Ejection fraction 20 to 25% with valvular heart disease. 6. Essential hypertension. 7. Gout. 8. History of non-Hodgkin lymphoma treated in 2011. 9. Status post XRT for prostate cancer. PLAN 1. IV fluids with dextrose, monitor Accu-Cheks frequently and obtain a hemoglobin A1C. 2. Stool cultures. 3. Supportive treatment. 4. Recheck labs in the morning. 5. We will give a p.o. dose of vitamin K and two units of FFP as INR is greater than 13 and the patient is at risk of bleeding. 6. Further workup and consults depending on above. Dictated by Brina Arnold M.D. AML/bd TD: 01/30/2017 06:05 JOB #: [id number] CC: Terence Colon M.D. Unit #: [id number] #: [id number] Patient: KARISHMA DENNIS SR HISTORY AND PHYSICAL Page 1 of 1 X Brina Arnold MD X HISTORY AND PHYSICAL
--- NOTE | ~2017-01-29 | CR72 ---
[facility] A Service of [facility] & [facility] RADIOLOGY TEXT RESULTS PATIENT: KARISHMA DENNIS SR LOCATION: [place] [address] : 40 UNIT #: [id number] AGE: [address]: Brina Arnold MD SEX: M ORDER DR: [id number] [facility] [address] [facility]. [place], [place] [address] [id number] I MR#: [id number] #: [id number] NAME: KARISHMA DENNIS SR : 1940 SEX: M STUDY DATE/TIME: 01/29/2017 21:08 UNIT: CEDOF ROOM: 91489 STUDY DESCRIPTION: CR Chest Single View Portable Attending Physician: Brina Arnold M.D. Ordering Physician: Ed Kwabena Browne M.D. Primary Care Physician: Jareth Acharya M.D. MEDICAL IMAGING REPORT This report is preliminary unless electronic signature is present EXAM Portable chest. HISTORY Hypoglycemia since yesterday. CHF. FINDINGS Mild cardiac enlargement. Normal pulmonary vascularity. Mildly tortuous descending thoracic aorta. Mild elevation of the right hemidiaphragm. No airspace infiltrates or pleural effusions. IMPRESSION No acute findings. Mild cardiac enlargement. No airspace infiltrates. Mild chronic elevation of the right hemidiaphragm. Dictated by... Wade Menendez M.D. THIS IS AN ELECTRONICALLY VERIFIED REPORT Wade Menendez M.D. at 01/30/2017 1:00 PM DFL/ted TD: 01/30/2017 09:21 JOB #: [id number] MEDICAL IMAGING REPORT Page 1 of 1 COPY
--- NOTE | ~2017-01-29 | EKG ---
PATIENT: KARISHMA DENNIS UNIT #: [id number] Ventricular Rate: 73 BPM Atrial Rate: 73 BPM P-R Interval: 192 ms QRS Duration: 96 ms Q-T Interval: 474 ms QTC Calculation(Bezet): 522 ms P [place]: 49 degrees Calculated R [place]: -14 degrees Calculated T [place]: 115 degrees Diagnosis Line: Sinus rhythm with occasional Premature ventricular Diagnosis Line: complexes Diagnosis Line: Minimal voltage criteria for LVH, may be normal Diagnosis Line: variant Diagnosis Line: ST and T wave abnormality, consider lateral ischemia Diagnosis Line: Abnormal ECG Diagnosis Line: When compared with ECG of 06-JAN-2017 06:07, Diagnosis Line: Premature atrial complexes are no longer Present Diagnosis Line: T wave inversion less evident in Lateral leads Diagnosis Line: Confirmed by SOUMYA ALEXANDRA MD ([id number]) on Diagnosis Line: 01/31/2017 1:28:25 PM INTERPRETING MD: NASRIN RODGERS
--- NOTE | ~2017-01-29 | DS ---
Unit #: [id number] #: [id number] Patient: KARISHMA DENNIS SR [id number] [address] [address] [id number] I MR#: [id number] NAME: KARISHMA DENNIS SR ROOM: [facility] Age: 76 Sex: M Admission Date: 01/29/2017 : 1940 Discharge Date: Attending Physician: Tammy Herbert M.D. Primary Care Physician: Jareth Acharya M.D. DISCHARGE SUMMARY DISCHARGE DIAGNOSES 1. Acute diarrhea most likely secondary to viral gastroenteritis. 2. Hypoglycemia secondary to poor oral intake. 3. 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 4. Coumadin toxicity. 5. Chronic kidney disease stage 2. 6. Chronic systolic heart failure. 7. Moderate to severe mitral regurgitation. 8. Moderate tricuspid regurgitation. 9. Hypertension. 10. Hypokalemia. 11. Hypomagnesemia. 12. Paroxysmal atrial fibrillation, on Coumadin. 13. Gastroesophageal reflux disease. 14. History of allergies. 15. Prostate cancer, status post radiation. 16. History of low-grade follicular non-Hodgkin's lymphoma, last chemotherapy in September 2011. 17. Chronic lymphedema. CONSULTATIONS None. PROCEDURES None. DIAGNOSTIC STUDIES LABORATORY: Glucose (1) , sodium 142, potassium 3.4, creatinine 1.5, magnesium 1.5. INR 2.3. C. difficile negative. Stool cultures negative. Hemoglobin A1c 6.1. Urinalysis negative for infection. ALLERGIES None. DISCHARGE MEDICATIONS 1. Flomax 0.4 mg p.o. daily. 2. Amiodarone 200 daily. 3. Warfarin 5 mg every other day. 4. Lopressor 50 p.o. b.i.d. 5. Lipitor 40 daily. 6. Hydralazine 25 p.o. b.i.d. 7. Allopurinol 300 daily. 8. Excedrin extra strength 1 capsule q.8 p.r.n. headache. Unit #: [id number] #: [id number] Patient: KARISHMA DENNIS SR 9. Oxycodone 5 mg p.o. b.i.d. p.r.n. 10. Plavix 75 p.o. daily. 11. Protonix 40 daily. 12. Potassium 40 mEq p.o. daily. 13. Isosorbide dinitrate 10 mg p.o. b.i.d. 14. Nitroglycerin 0.4 sublingual p.r.n. pain. 15. Vitamin D 2000 units p.o. daily. 16. Magnesium oxide 400 p.o. b.i.d. HOSPITAL COURSE A 76-year-old admitted because of diarrhea. Acute gastroenteritis with severe diarrhea. Stool culture negative. Clostridium difficile negative. Currently, diarrhea is resolved. Acute hypoglycemia most likely from poor p.o. intake. He was on high dose of Lantus which has been discontinued. Currently, sugars are less than 100. I am going to stop his Lantus. He needs to follow with primary physician for his insulin resuming (2) okay. Hypokalemia. Replaced with p.o. potassium. Hypomagnesemia. Replaced with p.o. magnesium. Chronic systolic heart failure, stable. Paroxysmal atrial fibrillation, on Coumadin. He came with a supratherapeutic INR of 13. No active bleeding. Currently, INR is 2.3. Continue with his Coumadin. Patient needs PT-INR checked on Monday, February 03, 2017, and follow with PCP with results. DISPOSITION Discharge home. FOLLOWUP With family physician in one week's time. DISCHARGE INSTRUCTIONS PT-INR on February 03, 2017, and follow with PCP with results. Dictated by... Semaj Correa/jerrica TD: 01/31/2017 14:05 JOB #: [id number] DISCHARGE SUMMARY Page 1 of 1 X Tammy Herbert MD X DISCHARGE SUMMARY
--- NOTE | ~2017-01-29 | A ---
[facility] Nutrition Therapy DATE: 01/31/17 Patient: KARISHMA FULLERSR REX Physician: ANN Address: [address] [place] [address] DRIVE Room/Bed: [address] [place] [address], Zip: [place] [address] Admit Date: 01/29/17 Date of : 40 Height: 5 11 Weight: 236 107.4 NUTRITIONAL ASSESSMENT: REASON: Assessing due to 3 points malnutrition risk score re: 5 lb unintentional weight loss and eating poorly Admitting dx: 76 y/o male admitted with hypoglycemia, diarrhea, coumadin toxicity PMH: DM, neuropathy, HTN, HLD, CKD, gout, ischemic cardiomyopathy, prostate CA, non-Hodgkin's lymphoma, gastritis, hiatal hernia, chronic lymphedema Anthropometrics: Ht: 71", Wt: 107.4 kg, BMI: 32 (Stage I obese) Labs: K+ 3.4, Creat 1.5, Mg 1.5, A1C 6.1, GFR 44.6, Glucose WNL Meds: Zofran prn, Vitamin D I/O & Bowel function: Last BM 01/31 Skin Integrity: Amputations L thumb/3rd-4th fingers, trace edema BLE Diet: Regular Assessment: Chart reviewed, events noted. See reason for assessment, admitting dx and PMH as stated above. Patient took a dose of lactulose 4-5 days ago and developed diarrea with decreased PO intake and N/V, however continued taking his regular dose of insulin resulting in hypoglycemia. Hypoglycemia now resolved, predict PO intake will improve with medical treatment. Of note, the patient is Stage I obese. RD previously provided diabetic diet education on 01/06/17- note reviewed. See recs as stated below, will follow. Dx: 1) Unintentional weight loss r/t N/V/D AEB 3 points malnutrition risk score. 2) Altered nutrition related lab values r/t moderately controlled DM AEB A1C 6.1, previous consult for diabetic diet education. 3) Stage I obese r/t diet, lifestyle, PMH AEB BMI 32. Intervention: Replace lytes, Zofran prn Monitoring, Evaluation and Goals: 1. PO intake at least 50% of meals with minimal c/o N/V/D. 2. Glucose WNL, reduction in A1C. 3. Once appropriate: gradual weight loss towards a healthy BMI range. Monitor: Per protocol, criteria to determine if above goals met [facility] Nutrition Therapy DATE: 01/31/17 Patient: KARISHMA DENNIS SR Physician: ANN Address: [address] [place] [address] Room/Bed: [address] [place] [address], Zip: [place] [address] Admit Date: 01/29/17 Date of : 40 Height: 5 11 Weight: 236 107.4 Recommendations: 1. Continue regular diet and Accucheks. 2. Replace lytes prn (K/Mg low). 3. RD provided diabetic diet education on 01/06/17- please consult if reinforcement is needed. The patient should be educated on proper insulin dosing to avoid hyper/hypoglycemia in the future. Will follow Mild nutrition risk Respectfully, Kay Rudd RD, LD [facility] cc: client file
[~2017-01-29 20:23] MED LIST changes: +AMIODARONE HCL200 MG PO; +CLOPIDOGREL75 MG PO; +HYDRALAZINE HCL25 MG PO; +IMMODIUM1 MG/5 M1; +ISOSORBIDE DINI10 MG PO; +KRISTALOSE10 GM PO; +LIPITOR40 MG PO; +LOPRESSOR PO; +NITROGLYGERIN0.4 MG
[2017-01-29] MEDS ORDERED: OXYCONTIN PO (21:03)
[2017-01-29 21:18] LABS: BASOPHIL% 0.2 % (0-2.5); EOSINOPHIL# 0.1 X10e3 (0-0.7); EOSINOPHIL% 0.7 % (0.0-7.0); HEMATOCRIT 42.3 % (38.0-50.0); HEMOGLOBIN 13.3 gm/dL (13.0-16.0); LYMPHOCYTE# 1.4 X10e3 (1.0-3.5); LYMPHOCYTE% 11.6 % (17.0-45.0); MEAN CELL VOLUME 87.5 FL (83-96); MEAN CORPUSCULAR HEMOGLOBIN 27.5 PG (28-34); MEAN CORPUSCULAR HGB CONC 31.4 g/dL (30-36); MEAN PLATELET VOLUME 9.1 FL (6.5-11.5); MONOCYTE# 1.6 X10e3 (0-1.0); MONOCYTE% 13.6 % (3.0-12.0); NEUTROPHIL# 8.9 X10e3 (1.5-7.1); NEUTROPHIL% 73.9 % (40-75); PLATELET COUNT 158 X10e3 (140-420); RED BLOOD COUNT 4.83 X10e (3.90-5.60); RED CELL DISTRIBUTION WIDTH 15.6 % (11.0-15.5)
[2017-01-29 21:20] LABS: DIFF IND NO
[2017-01-29 21:41] LABS: ALBUMIN SERUM 3.8 g/dL (3.5-5.0); BILIRUBIN, DIRECT 0.2 mg/dL (0.0-0.2); BILIRUBIN,INDIRECT 0.5 mg/dL (0.0-0.9); BILIRUBIN,TOTAL 0.7 mg/dL (0.2-2.0); BUN/CREATININE RATIO 18.75; CALCIUM SERUM 8.3 mg/dL (8.4-10.2); CREATININE SERUM 1.6 mg/dL (0.6-1.4); GLOM FILT RATE Estimated 41.3 mL/min (>60); POTASSIUM 3.4 mmol/L (3.5-5.1); PROTEIN TOTAL SERUM 6.6 g/dL (6.0-8.3)
[2017-01-29 22:09] LABS: POC - CKMB 1.2 ng/mL (0.0-7.9); POC - TROPONIN <0.05 ng/mL (<=0.05)
[2017-01-29 22:40] LABS: URINE SOURCE CLEAN CATCH
[2017-01-29 22:48] LABS: URINE APPEARANCE CLEAR; URINE BILIRUBIN NEG (NEG); URINE BLOOD NEG (NEG); URINE COLOR YELLOW; URINE GLUCOSE NEG (NEG); URINE KETONE NEG (NEG); URINE LEUKOCYTE ESTERASE NEG (NEG); URINE NITRATE NEG (NEG); URINE PROTEIN TRACE (NEG); URINE SPECIFIC GRAVITY 1.011 (1.003-1.035); URINE UROBILINOGEN 0.2 MG/DL (NEG)
[2017-01-29 22:51] LABS: CULTURE INDICATED? NO
[2017-01-29 23:04] LABS: INR >13.1; PARTIAL THROMBOPLASTIN TIME 57.4 SECONDS (23.5-31.3); PROTHROMBIN TIME (PATIENT) >150.0 SECONDS (9.6-11.5)
[2017-01-30 07:45] LABS: INR 4.2; PARTIAL THROMBOPLASTIN TIME 44.1 SECONDS (23.5-31.3)
[2017-01-30 07:48] LABS: PROTHROMBIN TIME (PATIENT) 46.5 SECONDS (9.6-11.5)
[2017-01-30 09:22] LABS: BASOPHIL% 0.3 % (0-2.5); EOSINOPHIL# 0.2 X10e3 (0-0.7); EOSINOPHIL% 2.3 % (0.0-7.0); HEMATOCRIT 42.7 % (38.0-50.0); HEMOGLOBIN 13.4 gm/dL (13.0-16.0); LYMPHOCYTE# 1.4 X10e3 (1.0-3.5); LYMPHOCYTE% 15.1 % (17.0-45.0); MEAN CELL VOLUME 88.3 FL (83-96); MEAN CORPUSCULAR HEMOGLOBIN 27.7 PG (28-34); MEAN CORPUSCULAR HGB CONC 31.3 g/dL (30-36); MEAN PLATELET VOLUME 9.6 FL (6.5-11.5); MONOCYTE# 1.2 X10e3 (0-1.0); MONOCYTE% 12.7 % (3.0-12.0); NEUTROPHIL# 6.6 X10e3 (1.5-7.1); NEUTROPHIL% 69.6 % (40-75); PLATELET COUNT 145 X10e3 (140-420); RED BLOOD COUNT 4.84 X10e (3.90-5.60); WHITE BLOOD COUNT 9.5 X10e3 (4.0-10.5)
[2017-01-30 09:26] LABS: DIFF IND NO
[2017-01-30 09:35] LABS: INR 4.3; PARTIAL THROMBOPLASTIN TIME 43.4 SECONDS (23.5-31.3); PROTHROMBIN TIME (PATIENT) 47.5 SECONDS (9.6-11.5)
[2017-01-30 09:45] LABS: BUN/CREATININE RATIO 17.85; CALCIUM SERUM 8.4 mg/dL (8.4-10.2); CREATININE SERUM 1.4 mg/dL (0.6-1.4); GLOM FILT RATE Estimated 48.5 mL/min (>60)
[2017-01-30 09:46] LABS: POTASSIUM 2.6 mmol/L (3.5-5.1)
[2017-01-31 06:27] LABS: INR 2.3; PROTHROMBIN TIME (PATIENT) 24.6 SECONDS (9.6-11.5)
[2017-01-31 07:05] LABS: BUN/CREATININE RATIO 14.66; CALCIUM SERUM 8.6 mg/dL (8.4-10.2); CREATININE SERUM 1.5 mg/dL (0.6-1.4); GLOM FILT RATE Estimated 44.6 mL/min (>60); MAGNESIUM 1.5 mg/dL (1.6-3.0); POTASSIUM 3.4 mmol/L (3.5-5.1)
[2017-01-31] MEDS ORDERED: MAGNESIUM400 M1 PO (14:18)
[2017-01-31] MEDS ORDERED: KLOR-CON PO (14:19)
== END 2017-01-31 14:48 | disposition home or self-care (01) | DRG 638 ==
LOC: CED 20:23 → CEDOF 23:35 → CED 23:35 → C3A PCU 23:55 → CEDOF 23:55 → C3A PCU 01-30 09:46 → CEDOF 01-30 09:46 → C3A PCU 01-31 09:32
PROVIDERS: Emergency Medicine; Internal Medicine
PROC: 30233L1 Transfusion of Nonautologous Fresh Plasma into Peripheral Vein, Percutaneous Approach (ICD-10-PCS; principal; 2017-01-30)
PROC: 30233K1 Transfusion of Nonautologous Frozen Plasma into Peripheral Vein, Percutaneous Approach (ICD-10-PCS; 2017-01-30)
DX: E11.649 Type 2 diabetes mellitus with hypoglycemia without coma (principal); I13.0 Hypertensive heart and chronic kidney disease with heart failure and stage 1 through stage 4 chronic kidney disease, or unspecified chronic kidney disease; E11.22 Type 2 diabetes mellitus with diabetic chronic kidney disease; I27.2 Other secondary pulmonary hypertension; I08.1 Rheumatic disorders of both mitral and tricuspid valves; I50.22 Chronic systolic (congestive) heart failure; E83.42 Hypomagnesemia; E11.42 Type 2 diabetes mellitus with diabetic polyneuropathy; E11.319 Type 2 diabetes mellitus with unspecified diabetic retinopathy without macular edema; M10.9 Gout, unspecified; E78.5 Hyperlipidemia, unspecified; Z85.46 Personal history of malignant neoplasm of prostate; Z85.72 Personal history of non-Hodgkin lymphomas; I25.5 Ischemic cardiomyopathy; E87.6 Hypokalemia; A08.4 Viral intestinal infection, unspecified; I48.0 Paroxysmal atrial fibrillation; Z79.01 Long term (current) use of anticoagulants; I89.0 Lymphedema, not elsewhere classified; N18.2 Chronic kidney disease, stage 2 (mild)
CPT/HCPCS: 36415; 71010; 80048; 80076; 81003; 82553; 82947; 83036; 83735; 83880; 84484; 85025; 85610; 85730; 86850; 86900; 86901; 87045; 87427; 87493; 87899; 93005; 99285; J3430; P9059